=== PATIENT | female | born 2000 | race Caucasian/White ===

== ENCOUNTER 2024-07-03 22:42 | Inpatient (IN) | payer SELFPAY, OTHER ==
[2024-07-03 20:43] VITALS: PULSE 80; O2SAT 98
[2024-07-03 20:46] VITALS: BP 124/87; PULSE 86
[2024-07-03 21:58] VITALS: BMI 40.0
--- NOTE | 2024-07-03 22:29 | OB.TRI.NOTE ---
HPI - General General Date of Service: 07/03/24 HPI Narrative CAIT BEE, is a 24 F who presents who presents at 40 weeks 0-day gestation from the birthing center. She has been in Labor for 2 days and wanted to be checked on labor and delivery this evening. Patient has not had any Pitocin or IV started. She also has not had her membranes ruptured although she thinks that her water may have broke about 2 weeks ago but she has not had any leaking since. She denies any vaginal bleeding and reports good movement. Wants to have a bedside ultrasound done. Bedside ultrasound is consistent with dating and good fluid is noted with amniotic fluid index being approximately 7 cm. heart tones reactive and contractions are noted every 4 to 5 minutes but palpate mild. Maternal Data Information Final AARON: 07/03/24 Final AARON Source: LMP PFSH PFSH Home Medications ?Medication ?Instructions ?Recorded ?Last Taken ?Type calcium phosphate,dibasic 77 1 tab PO DAILY 07/03/24 07/03/24 History mg-vitamin D3 400 unit tablet vit no.95-ferrous 1 tab PO DAILY 07/03/24 07/03/24 History fumarate 28 mg-folic acid 800 mcg tablet () Allergy/AdvReac Type Severity Reaction Status Date / Time No Known Allergies Allergy Verified 07/03/24 21:58 Physical Exam Narrative Afebrile, vital signs stable. Patient appears comfortable and early labor. Abdomen is appropriate for gestational age. No vaginal bleeding present. Cervix is 2/80/-2. Const alert, oriented x3 and no apparent distress General Appearance: cooperative and comfortable Exam Limitations: no limitations HEENT Head and Scalp: normocephalic Neck full ROM Resp normal respiratory effort Cardio regular rate and regular rhythm Neuro moves all extremities Psych mental status grossly normal, affect normal and speech normal NST FHR Rate Baby A NST Reactive:: Yes FHR Category:: Category I Assessment & Plan (1) Rupture of membranes: (2) : (3) care insufficient: COMMENT: Patient is considering whether to deliver our facility or return to the birthing center. If she delivers here we will need to check labs and also begin group B strep prophylaxis. No evidence of chorioamnionitis at this point. Patient is likely in early labor and Pitocin may be warranted to help with labor progression.
[2024-07-03 22:30] LABS: ROM Internal Control Test YES-OK TO RESULT pt. (Internal QC)
[2024-07-03 22:31] LABS: ROM Patient Test POSITIVE (Negative); Record Kit Lot#, ROM+ K1660
[2024-07-03] MEDS: Lactated Ringers 1,000 ML 50 ML IV (23:45)
[2024-07-04] VITALS (86 sets, daily range): BP systolic 98–144; BP diastolic 53–88; PULSE 65–138; RESP 12–18; TEMP 36.1–37; O2SAT 90–100
[2024-07-04 00:05] LABS: Bacteria 0 SEEN /hpf (None Seen); Mucous, Urine 0 SEEN /hpf (<or=2+); Red Blood Cells-Urine 0 SEEN /hpf (0-5); Squamous Epithelial Cells - UA 0 SEEN /hpf (5-10); White Blood Cells 0 SEEN /hpf (0-5)
[2024-07-04] MEDS: Penicillin G Pot 5,000,000 UNITS in 0.9% Normal Saline (100mL MB+) 100 ML 150 UNITS IV (00:11)
[2024-07-04 00:14] LABS: Absolute Lymphocyte Count 2.81 X10^3/uL (0.83-4.51); Absolute Neutrophil Count 10.3 X10^3/uL (2.0-7.7); Basophil# 0.04 X10^3/uL; Basophil% 0.3 % (0-1); Eosinophil# 0.06 X10^3/uL; Eosinophils% 0.4 % (0-5); Hematocrit 35.7 % (37-47); Hemoglobin 12.3 g/dL (12.0-15.0); Lymphocyte # 2.81 X10^3/ul (0.83-4.51); Mean Corp Hgb Conc 34.5 g/dL (32-36); Mean Corpuscular Hgb 31.3 pg (27.0-32.0); Mean Corpuscular Volume 90.8 fL (81-99); Mean Platelet Vol. 11.5 fl (6.2-12.0); NRBC Flagged by Analyzer 0 % (0-5); Neutrophil % 73.5 % (47-70); Platelet Count 238 K/mm3 (150-450); RBC Distribution Width CV 12.4 % (11.6-14.6); RBC Distribution Width SD 40.9 fl (35.1-43.9); Red Blood Count 3.93 M/mm3 (4.2-5.4)
[2024-07-04] MEDS: Oxytocin 15 Units/NS 250ml 15 UNITS/250 ML IV.SOLN 2 UNITS IV (00:15)
[2024-07-04] MEDS: fentaNYL 100 MCG/2 ML Ampul IV ×2 (00:16→06:00)
[2024-07-04 00:42] LABS: Glucose, Dipstick Normal (Normal); Ketone-Dipstick Negative (Negative); Leukocyte Esterase-Dipstick Negative /ul (Negative); Nitrite-Dipstick Negative (Negative); Occult Blood-Urine Negative /ul (Negative); Protein-Dipstick Negative (Negative); Urine Bilirubin Dipstick Negative (Negative); Urine Urobilinogen Normal (Normal)
[2024-07-04 01:00] LABS: HIV - WCH Non-Reactive (Nonreactive); Rubella IgG Non-Reactive (Nonreactive)
[2024-07-04 01:07] LABS: Syphilis Antibodies Non-reactive
[2024-07-04 01:27] LABS: Color, Urine Yellow (Yellow); Urine Clarity Clear (Clear)
[2024-07-04] MEDS: Penicillin G 3,000,000 Units 50 ML 100 UNITS IV ×4 (05:15→20:04)
--- NOTE | 2024-07-04 09:01 | PCM.PN.OB ---
Subjective Subjective In active labor with pitocin at 6. Objective Data Objective Data Vital Signs: Vital Signs Temp Pulse Resp BP Pulse Ox 97.0 F L 71 16 114/76 100 07/04/24 07:19 07/04/24 08:23 07/04/24 07:19 07/04/24 08:23 07/04/24 07:18 Weight: 218 lb 12.8 oz Body Mass Index (BMI) 40.0 Intake & Output: Intake and Output for Last 24 Hours 07/02/24 07/03/24 07/04/24 23:59 23:59 23:59 Intake Total 196.57 / 196.57 Output Total 200 / 200 Balance -3.43 / -3.43 Lab / Micro Data 07/03/24 23:45 Labs: Laboratory Results - last 24 hr 07/03/24 21:15: Vag Amniotic Fld Detect POSITIVE H 07/03/24 23:45: WBC Cancelled 07/03/24 23:45: WBC 14.0 H, Corrected WBC Cancelled, RBC Cancelled 07/03/24 23:45: RBC 3.93 L, Hgb Cancelled 07/03/24 23:45: Hgb 12.3, Hct Cancelled 07/03/24 23:45: Hct 35.7 L, MCV Cancelled 07/03/24 23:45: MCV 90.8, MCH Cancelled 07/03/24 23:45: MCH 31.3, MCHC Cancelled 07/03/24 23:45: MCHC 34.5, RDW Std Deviation Cancelled 07/03/24 23:45: RDW Std Deviation 40.9, RDW Coeff of Stephany Cancelled 07/03/24 23:45: RDW Coeff of Stephany 12.4, Plt Count Cancelled 07/03/24 23:45: Plt Count 238, MPV Cancelled 07/03/24 23:45: MPV 11.5, Immature Gran % (Auto) Cancelled 07/03/24 23:45: Immature Gran % (Auto) 0.800, Neut % (Auto) Cancelled 07/03/24 23:45: Neut % (Auto) 73.5 H, Lymph % (Auto) Cancelled 07/03/24 23:45: Lymph % (Auto) 20.0, [place] % (Auto) Cancelled 07/03/24 23:45: [place] % (Auto) 5.0, Eos % (Auto) Cancelled 07/03/24 23:45: Eos % (Auto) 0.4, Baso % (Auto) Cancelled 07/03/24 23:45: Baso % (Auto) 0.3, Absolute Neuts (auto) Cancelled 07/03/24 23:45: Absolute Neuts (auto) 10.3 H, Absolute Lymphs (auto) Cancelled 07/03/24 23:45: Absolute Lymphs (auto) 2.81, Total Counted Cancelled, Neutrophils % (Manual) Cancelled, Band Neutrophils % Cancelled, Lymphocytes % (Manual) Cancelled, Monocytes % (Manual) Cancelled, Eosinophils % (Manual) Cancelled, Basophils % (Manual) Cancelled, Metamyelocytes % Cancelled, Myelocytes % Cancelled, Promyelocytes % Cancelled, Blast Cells % Cancelled, Plasma Cell % (Manual) Cancelled, Other Cells % Cancelled, Nucleated RBC % Cancelled 07/03/24 23:45: Nucleated RBC % 0, Nucleated RBCs/100 WBC Cancelled, Differential Comment Cancelled, Diff Path Review Cancelled, Hypersegmented Neuts Cancelled, Atypical Lymphocytes Cancelled, Reactive Lymphocytes Cancelled, Smudge Cells Cancelled, Toxic Granulation Cancelled, Toxic Vacuolation Cancelled, Dohle Bodies Cancelled, Ness Rods Cancelled, Platelet Estimate Cancelled, Plt Morphology Comment Cancelled, RBC Morphology Cancelled 07/03/24 23:45: RBC Morphology Cancelled, Polychromasia Cancelled, Hypochromasia Cancelled, Basophilic Stippling Cancelled, Anisocytosis Cancelled, Microcytosis Cancelled, Macrocytosis Cancelled, Spherocytes Cancelled, Sickle Cells Cancelled, Target Cells Cancelled, Tear Drop Cells Cancelled, Ovalocytes Cancelled, Stomatocytes Cancelled, [employer] Bodies Cancelled, Crowell Cells Cancelled, Bite Cells Cancelled, Crenated Cell Cancelled, Acanthocytes (Spur) Cancelled, Rouleaux Cancelled, Schistocytes Cancelled, Urine Color Yellow, Urine Clarity Clear, Urine pH 7.0, Ur Specific [place]y 1.010, Urine Protein Negative, Urine Glucose (UA) Normal, Urine Ketones Negative, Urine Occult Blood Negative, Urine Nitrite Negative, Urine Bilirubin Negative, Urine Urobilinogen Normal, Ur Leukocyte Esterase Negative, Urine RBC 0 SEEN, Urine WBC 0 SEEN, Ur Squamous Epith Cells 0 SEEN, Urine Bacteria 0 SEEN, Urine Mucus 0 SEEN, Syphilis Total Ab Non-reactive 07/03/24 23:45: Syphilis Total Ab Cancelled, HIV 1&2 Antibody Non-Reactive, Rubella IgG Antibody Non-Reactive, Antibody Screen POSITIVE H, Antibody Identification ANTI-D Micro: Microbiology 07/03/24 23:15 Genital vaginal Group B Streptococcus (PCR) - Final 07/03/24 21:20 Urine, Clean Catch Chlamydia/Neisseria (PCR) - Final Physical Exam Narrative AF, VSS Cervix now /0 AROM (of forebag?) with clear fluid internals placed Some mild hyperstim after AROM so Pitocin off now. Expect .
[2024-07-04 09:06] LABS: Hepatitis B Surface Antigen Non-Reactive (Nonreactive); Hepatitis C Antibody Non-Reactive (Nonreactive)
[2024-07-04] MEDS: Lactated Ringers 1,000 ML 999 ML IV (12:10)
[2024-07-04] MEDS: fentaNYL-bupivacaine (epidural) 100 ML BAG EPIDURAL ×2 (13:05→17:13)
[2024-07-04] MEDS: Lactated Ringers 1,000 ML 200 ML IV ×2 (15:02→19:54)
--- NOTE | 2024-07-04 22:49 | OP.PCM_ITS ---
Vaginal Delivery Maternal Presentation Maternal Presentation: Spontaneous Rupture of Membranes Maternal Presentation: Presented from [facility] at 40 weeks gestation after having been in center for 2 days in early labor. A ROM test here was positive. Given this we proceeded with Pitocin augmentation. Operative Information Date of Procedure: 07/04/24 Pre-Operative Diagnosis: Intrauterine Post-Operative Diagnosis: Intrauterine Surgery / Procedure Performed: Spontaneous Vaginal Delivery Type of Anesthesia: Epidural Drain: Leyva to straight drain (Removed after delivery) Estimated Blood Loss: 350 cc Findings Description of Procedure: Spontaneous vaginal delivery of a viable male infant with Apgars of 8/9 from an occiput anterior presentation with clear amniotic fluid and normal three-vessel placenta. Adherent membranes requiring multiple passes of the banjo curette to affect final removal. No episiotomy. First-degree midline laceration repaired with 3-0 Rapide suture under epidural. No shoulder dystocia. Delivery physician: Syed Bautista MD. Presentation: Vertex Amniotic Membrane Rupture Type: Spontaneous Amniotic Fluid Description: Clear Placental Delivery Description: Spontaneous and Curettage (Adherent membranes) Placenta Disposition: [facility] Cord Vessel Description: 3 Vessels Cord Entanglement: None Infant A Gender: Male (1 minute): 8 (5 minute): 9 Delayed Cord Clamping: Yes Post Vaginal Delivery Medications Given After Delivery: IV Pitocin Episiotomy Description: None Laceration: Midline and 1st degree Complication Complications: None
[2024-07-04] MEDS: Oxytocin 15 Units/NS 250ml 15 UNITS/250 ML IV.SOLN 83 UNITS IV (23:08)
[2024-07-04] MEDS: Cefazolin 2 GM in 0.9% Normal Saline (100mL Bag) 100 ML IV (23:41)
[2024-07-05] VITALS (18 sets, daily range): BP systolic 90–114; BP diastolic 57–75; PULSE 92–116; RESP 16; TEMP 36.5–37.2; O2SAT 96–100
[2024-07-05 06:23] LABS: Absolute Lymphocyte Count 2.14 X10^3/uL (0.83-4.51); Absolute Neutrophil Count 14.1 X10^3/uL (2.0-7.7); Basophil# 0.04 X10^3/uL; Basophil% 0.2 % (0-1); Eosinophil# 0.02 X10^3/uL; Eosinophils% 0.1 % (0-5); Hematocrit 31.9 % (37-47); Lymphocyte # 2.14 X10^3/ul (0.83-4.51); Lymphocyte % 12.2 % (19-41); Mean Corp Hgb Conc 34.5 g/dL (32-36); Mean Corpuscular Hgb 31.5 pg (27.0-32.0); Mean Corpuscular Volume 91.4 fL (81-99); Mean Platelet Vol. 11.4 fl (6.2-12.0); Monocyte% 6.8 % (0-10); NRBC Flagged by Analyzer 0 % (0-5); Neutrophil # 14.12 X10^3/uL (2.7-7.7); Neutrophil % 80.3 % (47-70); Platelet Count 203 K/mm3 (150-450); RBC Distribution Width CV 12.4 % (11.6-14.6); RBC Distribution Width SD 40.8 fl (35.1-43.9); Red Blood Count 3.49 M/mm3 (4.2-5.4); White Blood Count 17.6 K/mm3 (4.4-11.0)
--- NOTE | 2024-07-05 07:41 | PCM.PN.OB ---
Subjective Subjective Patient doing well without complaints. Tolerating PO. Ambulating and voiding without difficulty. Feeding well. Denies chest pain, shortness of breath, calf pain/swelling, fevers, chills, lightheadedness. Objective Data Objective Data Vital Signs: Vital Signs Temp Pulse Resp BP Pulse Ox O2 Del Method 98.0 F 96 16 90/60 96 Room Air 07/05/24 03:30 07/05/24 03:30 07/05/24 03:30 07/05/24 03:30 07/05/24 03:30 07/05/24 03:30 Oxygen Delivery Method Room Air Weight: 218 lb 12.8 oz Body Mass Index (BMI) 40.0 Intake & Output: Intake and Output for Last 24 Hours 07/03/24 07/04/24 07/05/24 23:59 23:59 23:59 Intake Total 2313.40 / 2313.40 360 / 360 Output Total 2550 / 2550 900 / 900 Balance -236.60 / -236.60 -540 / -540 Lab / Micro Data Attestation: I reviewed the patient's lab results. 07/05/24 06:04 Labs: Laboratory Results - last 24 hr 07/03/24 23:45: Hep Bs Antigen Non-Reactive, Hepatitis C Antibody Non-Reactive, Antibody Screen POSITIVE H, Antibody Identification ANTI-D 07/05/24 06:04: WBC 17.6 H, RBC 3.49 L, Hgb 11.0 L, Hct 31.9 L, MCV 91.4, MCH 31.5, MCHC 34.5, RDW Std Deviation 40.8, RDW Coeff of Stephany 12.4, Plt Count 203, MPV 11.4, Immature Gran % (Auto) 0.400, Neut % (Auto) 80.3 H, Lymph % (Auto) 12.2 L, [place] % (Auto) 6.8, Eos % (Auto) 0.1, Baso % (Auto) 0.2, Absolute Neuts (auto) 14.1 H, Absolute Lymphs (auto) 2.14, Nucleated RBC % 0, Screen NEGATIVE, Baby's Blood Type B POSITIVE, Baby's LESA NEGATIVE Micro: Microbiology 07/03/24 23:15 Genital vaginal Group B Streptococcus (PCR) - Final 07/03/24 21:20 Urine, Clean Catch Chlamydia/Neisseria (PCR) - Final ROS Constitutional Constitutional: Reports systems reviewed and no addt'l complaints, except as documented; Denies anorexia or headache(s) Cardiovascular Cardiovascular: Reports systems reviewed and no addt'l complaints, except as documented; Denies dizziness, dyspnea, nausea or tachypnea Respiratory/Chest Respiratory/Chest: Reports systems reviewed and no addt'l complaints, except as documented; Denies cough, dyspnea, shortness of breath at rest or tachypnea Gastrointestinal Gastrointestinal: Reports systems reviewed and no addt'l complaints, except as documented; Denies abdominal pain, constipation or nausea Genitourinary Genitourinary: Reports systems reviewed and no addt'l complaints, except as documented; Denies burning urination, difficulty urinating, dysuria, urinary frequency or urinary incontinence Musculoskeletal Musculoskeletal: Reports systems reviewed and no addt'l complaints, except as documented Integumentary Integumentary: Reports systems reviewed and no addt'l complaints, except as documented Neurologic Neurologic: Reports systems reviewed and no addt'l complaints, except as documented; Denies abnormal speech, dizziness or headache(s) Psychiatric Psychiatric: Reports systems reviewed and no addt'l complaints, except as documented Endocrine Endocrinology: Reports systems reviewed and no addt'l complaints, except as documented Hematologic/Lymphatic Hematologic/Lymphatic: Reports systems reviewed and no addt'l complaints, except as documented Physical Exam Const alert, oriented x3 and no apparent distress Neck full ROM Resp normal respiratory effort, normal air movement and no retractions Effort and Inspection: able to speak in complete sentences and symmetric chest movement GI soft to palpation Bladder / Kidney Exam: bladder normal to palpation Uterus Palpation: uterus fundus Extremity normal to inspection and full ROM Psych mental status grossly normal, thought process normal and cooperative Assessment & Plan (1) Vaginal delivery: COMMENT: NIGHAT PLAN: s/p PPD # 1 1. routine post delivery care 2. breast feeding- support given 3. rh positive 4. rubella immune (2) : (3) Rupture of membranes: Charges/Coding Multi Select Codes Urinary/Genital Urinary/Genital CPT Codes: 89327 CARE AFTER DELIVERY ( day 1)
[2024-07-05] MEDS: 0.9% Saline Lock 10 ML Syringe IV (11:02)
[2024-07-05] MEDS: Rho(D) Immune Globulin 300 MCG (1500 Unit) Syringe IV (11:02)
--- NOTE | 2024-07-05 12:13 | NURSING ---
Pt wishes to go home before 24 hours. Will discuss with OB and acute care occupational therapist.
--- NOTE | 2024-07-05 12:17 | DCINST_ITS ---
Discharge Instructions Diet Discharge Diet: No restrictions Activity Discharge Activity: Return to Normal Activity May resume sexual activity in: 6-8 weeks Dressing / Incision Call your doctor if you observe: Fever of 101 or Higher, Coldness, Increased Pain, Numbness or Tingling, Change in Color, Inability to urinate, Inability to have a bowel movement, Using more than 1 pad per hour, Shortness of breath, Dizziness, Fainting spells, Swelling in the ankles, Chest pain, Increased palpitations (irregular heartbeat), Calf discomfort and Uncontrolled pain Follow Up Care Please Follow Up With: Aminata Munoz CNM When: Please call the office to schedule your follow up appointment in 6 weeks. If you had high blood pressure please call to schedule an appointment in 2 weeks. Test Results: Test results from this visit will be discussed in further detail at your follow- up appointment, if applicable. Discharge Plan Admission Admit Date/Time: 07/03/24 22:42 Attending Provider: Syed Bautista Primary Care Provider: Care Physician,Rebekah Primary Discharge Orders/Prescriptions Prescriptions: No Action PNV cmb#95-ferrous fumarate-FA [] 28 mg iron- 800 mcg tablet 1 tab PO DAILY calcium phos,dibas-vitamin D3 77-400 mg-unit tablet 1 tab PO DAILY Nrf2 Activator [id number] mg capsule 1 cap PO BID alfalfa 500 mg tablet 1,500 mg PO TID PRN (Reason: ) cholecalciferol (vitamin D3) [Vitamin D3] 10 mcg (400 unit) capsule 10 mcg PO BID chlorophyll copper complex Powder See Rx Instructions PO BID PRN (Reason: ) Rx Instructions: 3 tablespoons orally twice a day PRN; Referrals / Follow Up: Care Physician,No Primary [Primary Care Provider] - Disposition Disposition (needs filled in before D/C Order can be placed): Home, Self Care
== END 2024-07-05 19:10 | disposition home or self-care (01) | DRG 807 ==
LOC: WPOUT 22:52 → WP 22:52
PROVIDERS: Admitting Provider Obstetrics & Gynecology; Referring Provider Obstetrics & Gynecology; Visit Provider Obstetrics & Gynecology
DX: O42.12 Full-term premature rupture of membranes, onset of labor more than 24 hours following rupture (principal); Z37.0 Single live birth; O70.0 First degree perineal laceration during delivery; Z3A.40 40 weeks gestation of pregnancy
CPT/HCPCS: 59025; 59050; 81001; 84112; 85025; 85461; 86703; 86762; 86780; 86803; 86850; 86870; 86900; 86901; 87340; 87491; 87591; 87653; 90384; 99221; J7120; A4216; G0378; J2790; J2791